=== PATIENT | female | born 1970 | race African-American/Black ===

== ENCOUNTER 2020-11-29 22:38 | Inpatient (IN) ==
[2020-11-29] MEDS ORDERED: VANCOMYCIN INJ 1,000 MG in SODIUM CHLORIDE 0.9% 250 ML IV STA ×2 (23:36→23:42)
[2020-11-29] MEDS ORDERED: ACETAMINOPHEN 325 MG TABLET PO PRN (23:36)
[2020-11-29] MEDS ORDERED: ONDANSETRON 4 MG/2 ML VIAL IV PRN (23:36)
[2020-11-29] MEDS: HYDROmorphone 2 MG/1 ML VIAL IV PRN (23:55)
[2020-11-30] MEDS ORDERED: diphenhydrAMINE 50 MG/1 ML VIAL IV STA (00:15)
[2020-11-30] MEDS ORDERED: CIPROFLOXACIN INJ 400 MG/200 ML PREMIX IV STA (00:59)
[2020-11-30] MEDS: LACTATED RINGERS 1,000 ML IV SCH ×2 (02:30→19:45)
[2020-11-30] MEDS ORDERED: ZALEPLON 5 MG CAPSULE PO PRN (02:40)
[2020-11-30] MEDS: metroNIDAZOLE INJ 500 MG/100 ML PREMIX IV SCH ×3 (04:00→20:51)
[2020-11-30] MEDS ORDERED: PANTOPRAZOLE 40 MG TABLET PO SCH (09:00)
[2020-11-30] MEDS: CALCIUM ACETATE 667 MG CAPSULE PO SCH ×4 (09:37→16:37)
[2020-11-30] MEDS: PANTOPRAZOLE 40 MG TABLET PO SCH (10:20)
[2020-11-30] MEDS: predniSONE 10 MG TABLET PO SCH (10:20)
[2020-11-30 10:22] LABS: Basophils % 0.3 % (0.0-0.8); Eosinophils # 0.4 10*3/uL (0.0-0.87); Eosinophils % 2.6 % (0.00-10.9); Hematocrit 38.3 VOL% (35.7-47.0); Hemoglobin 11.7 GM/DL (12.0-16.0); Immature Granulocytes % 1.9 %; Immature Granulocytes Absolute 0.26 #; Lymphocytes # 1.2 10*3/uL (1.4-4.0); Lymphocytes % 8.3 % (21.3-54.2); Mean Corpuscular HGB Conc 30.5 GM/DL (32-36); Mean Corpuscular Volume 96.7 FL (87-102); Mean Platelet Volume 9.6 FL (9.6-12.0); Monocytes % 7.9 % (1.7-12.7); Platelet Count 191 T/CUMM (130-400); Red Blood Count 3.96 MC/CUMM (3.8-5.5); Red Cell Distribution Width 17.6 % (9.3-17.3); White Blood Count 13.9 T/CUMM (4-12)
[2020-11-30 10:37] LABS: Calcium 8.6 MG/DL (8.5-10.1); Osmolality,Calculated 276.2 MOS/KG (273-304); Potassium 4.1 MMOL/L (3.5-5.1)
[2020-11-30] MEDS: HYDROmorphone 2 MG/1 ML VIAL IV PRN ×2 (12:14→16:33)
[2020-11-30] MEDS ORDERED: LIDOCAINE/PRILOCAINE CREAM 5 GM TUBE TOP ONE (15:10)
[2020-11-30] MEDS: diphenhydrAMINE CAP 25 MG CAPSULE PO PRN ×2 (16:31→21:59)
[2020-11-30] MEDS: CIPROFLOXACIN INJ 400 MG/200 ML PREMIX IV SCH (21:53)
[2020-12-01] MEDS: metroNIDAZOLE INJ 500 MG/100 ML PREMIX IV SCH ×3 (04:46→21:42)
[2020-12-01] MEDS: diphenhydrAMINE CAP 25 MG CAPSULE PO PRN ×2 (04:49→18:01)
[2020-12-01 04:52] LABS: Basophils % 0.2 % (0.0-0.8); Eosinophils # 0.3 10*3/uL (0.0-0.87); Eosinophils % 2.3 % (0.00-10.9); Hematocrit 35.6 VOL% (35.7-47.0); Hemoglobin 10.8 GM/DL (12.0-16.0); Immature Granulocytes % 2.7 %; Immature Granulocytes Absolute 0.38 #; Lymphocytes # 1.4 10*3/uL (1.4-4.0); Lymphocytes % 10.3 % (21.3-54.2); Mean Corpuscular HGB Conc 30.3 GM/DL (32-36); Mean Corpuscular Volume 97.5 FL (87-102); Mean Platelet Volume 9.9 FL (9.6-12.0); Monocytes % 9.7 % (1.7-12.7); Neutrophils % 74.8 % (38.7-73.9); Platelet Count 165 T/CUMM (130-400); Red Blood Count 3.65 MC/CUMM (3.8-5.5); Red Cell Distribution Width 17.9 % (9.3-17.3); White Blood Count 13.9 T/CUMM (4-12)
[2020-12-01 05:17] LABS: Osmolality,Calculated 272.8 MOS/KG (273-304); Potassium 4.1 MMOL/L (3.5-5.1)
[2020-12-01] MEDS: LIDOCAINE/PRILOCAINE CREAM 5 GM TUBE TOP SCH (07:32)
[2020-12-01] MEDS: CALCIUM ACETATE 667 MG CAPSULE PO SCH ×3 (09:39→17:19)
[2020-12-01] MEDS: predniSONE 10 MG TABLET PO SCH (09:39)
[2020-12-01] MEDS: PANTOPRAZOLE 40 MG TABLET PO SCH (09:39)
[2020-12-01] MEDS: LACTATED RINGERS 1,000 ML IV SCH (17:43)
[2020-12-01] MEDS: CIPROFLOXACIN INJ 400 MG/200 ML PREMIX IV SCH (22:42)
[2020-12-02] MEDS: diphenhydrAMINE CAP 25 MG CAPSULE PO PRN (00:01)
[2020-12-02] MEDS: metroNIDAZOLE INJ 500 MG/100 ML PREMIX IV SCH ×3 (05:35→21:39)
[2020-12-02 07:39] LABS: Basophils % 0.4 % (0.0-0.8); Eosinophils # 0.3 10*3/uL (0.0-0.87); Eosinophils % 2.3 % (0.00-10.9); Hematocrit 37.3 VOL% (35.7-47.0); Hemoglobin 11.1 GM/DL (12.0-16.0); Immature Granulocytes % 2.5 %; Immature Granulocytes Absolute 0.28 #; Lymphocytes # 1.2 10*3/uL (1.4-4.0); Lymphocytes % 10.5 % (21.3-54.2); Mean Corpuscular HGB Conc 29.8 GM/DL (32-36); Mean Corpuscular Volume 97.4 FL (87-102); Mean Platelet Volume 9.6 FL (9.6-12.0); Monocytes % 7.9 % (1.7-12.7); Neutrophils % 76.4 % (38.7-73.9); Platelet Count 160 T/CUMM (130-400); Red Blood Count 3.83 MC/CUMM (3.8-5.5); Red Cell Distribution Width 17.8 % (9.3-17.3); White Blood Count 11.4 T/CUMM (4-12)
[2020-12-02 08:05] LABS: Calcium 7.7 MG/DL (8.5-10.1); Osmolality,Calculated 270.5 MOS/KG (273-304); Potassium 3.9 MMOL/L (3.5-5.1)
[2020-12-02] MEDS: CALCIUM ACETATE 667 MG CAPSULE PO SCH ×3 (13:39→18:04)
[2020-12-02] MEDS: predniSONE 10 MG TABLET PO SCH (13:39)
[2020-12-02] MEDS: PANTOPRAZOLE 40 MG TABLET PO SCH (13:40)
[2020-12-02] MEDS: LACTATED RINGERS 1,000 ML IV SCH (20:15)
[2020-12-02] MEDS: CIPROFLOXACIN INJ 400 MG/200 ML PREMIX IV SCH (21:39)
[2020-12-03] MEDS: metroNIDAZOLE INJ 500 MG/100 ML PREMIX IV SCH (04:11)
[2020-12-03 05:49] LABS: Basophils % 0.3 % (0.0-0.8); Eosinophils # 0.3 10*3/uL (0.0-0.87); Eosinophils % 2.4 % (0.00-10.9); Hematocrit 33.5 VOL% (35.7-47.0); Hemoglobin 10.5 GM/DL (12.0-16.0); Immature Granulocytes % 1.6 %; Immature Granulocytes Absolute 0.17 #; Lymphocytes # 0.9 10*3/uL (1.4-4.0); Lymphocytes % 8.9 % (21.3-54.2); Mean Corpuscular HGB Conc 31.3 GM/DL (32-36); Mean Corpuscular Volume 94.9 FL (87-102); Monocytes % 9.9 % (1.7-12.7); Neutrophils % 76.9 % (38.7-73.9); Platelet Count 144 T/CUMM (130-400); Red Blood Count 3.53 MC/CUMM (3.8-5.5); Red Cell Distribution Width 17.7 % (9.3-17.3); White Blood Count 10.6 T/CUMM (4-12)
[2020-12-03 06:12] LABS: Albumin 2.5 G/DL (3.4-5.0); Bilirubin,Total 0.6 MG/DL (0.2-1.0); Calcium 7.3 MG/DL (8.5-10.1); Osmolality,Calculated 274.4 MOS/KG (273-304); Potassium 3.9 MMOL/L (3.5-5.1); Total Protein 7.6 G/DL (6.4-8.2)
[2020-12-03] MEDS: PANTOPRAZOLE 40 MG TABLET PO SCH (09:31)
[2020-12-03] MEDS: predniSONE 10 MG TABLET PO SCH (09:32)
[2020-12-03] MEDS: CALCIUM ACETATE 667 MG CAPSULE PO SCH ×2 (09:32→13:27)
[2020-12-03] MEDS: LACTATED RINGERS 1,000 ML IV SCH (09:40)
[2020-12-03 11:47] VITALS: BP 63/53
[2020-12-03] MEDS ORDERED: GENTAMICIN INJ 160 MG in SODIUM CHLORIDE 0.9% 100 ML IV ONE (12:30)
[2020-12-03] MEDS: LIDOCAINE/PRILOCAINE CREAM 5 GM TUBE TOP SCH (13:27)
[2020-12-05] MEDS ORDERED: GENTAMICIN INJ 120 MG/100 ML PREMIX IV SCH (17:00)
== END 2020-12-03 15:50 | disposition home or self-care (01) | DRG 393 ==
LOC: EDBD → EDUNIT# → N.ED 22:38 → N.EDINP 23:36 → N.5E 11-30 00:59
PROVIDERS: ADMIT Surgery; ATTEND Surgery

== ENCOUNTER 2020-12-04 10:13 | Inpatient (IN) ==
[2020-12-04] MEDS ORDERED: ALBUTEROL 2.5 MG/3 ML NEB RESP TX PRN (10:20)
[2020-12-04] MEDS ORDERED: NOREPINEPHRINE 8 MG in SODIUM CHLORIDE 0.9% 242 ML IV PRN (10:20)
[2020-12-04] MEDS ORDERED: MIDAZOLAM 2 MG/2 ML VIAL ONE (10:28)
[2020-12-04] MEDS ORDERED: MIDAZOLAM 10 MG/2 ML VIAL ONE (10:28)
[2020-12-04 10:38] LABS: ABG Base Excess -13.7 MMOL/L (-2.5-2.5); ABG HCO3 16.6 MMOL/L (20-26); ABG Oxygen Saturation 93.2 % (95-100); ABG PCO2 60.4 MM HG (35-48); ABG PO2 98.1 MM HG (80-95); ABG TCO2 18.5 MMOL/L (23-27)
[2020-12-04] MEDS ORDERED: MIDAZOLAM 2 MG/2 ML VIAL IV STA (10:39)
[2020-12-04 10:45] LABS: ABG PH 7.058 (7.35-7.45)
[2020-12-04 10:46] LABS: Basophils # 0.1 10*3/uL (0.0-0.2); Basophils % 0.4 % (0.0-0.8); Eosinophils # 0.2 10*3/uL (0.0-0.87); Hemoglobin 10.4 GM/DL (12.0-16.0); Immature Granulocytes % 5.5 %; Immature Granulocytes Absolute 0.79 #; Lymphocytes # 6.3 10*3/uL (1.4-4.0); Lymphocytes % 44.1 % (21.3-54.2); Mean Corpuscular HGB Conc 29.7 GM/DL (32-36); Mean Corpuscular Volume 99.7 FL (87-102); Mean Platelet Volume 10.5 FL (9.6-12.0); Monocytes % 2.2 % (1.7-12.7); NRBC # 0.02 10*3/uL; Neutrophils % 46.8 % (38.7-73.9); Platelet Count 107 T/CUMM (130-400); Red Blood Count 3.51 MC/CUMM (3.8-5.5); Red Cell Distribution Width 17.9 % (9.3-17.3); White Blood Count 14.3 T/CUMM (4-12)
[2020-12-04 10:50] LABS: INR 1.2; PT Patient Result 13.8 SECS (10.5-12.0); Partial Thromboplastin Time 61.2 SECS (23.9-33.8)
[2020-12-04 10:58] LABS: Band Neutrophils 1 % (0-10); Eosinophils 1 % (0-10); Lymphocytes 42 % (20-55); Platelet Estimate Decreased; Segmented Neutrophils 52 % (50-85); Total Cells Counted 100
[2020-12-04 11:00] LABS: Atypical Lymphocytes Few; Hypochromasia Slight; Microcytosis Slight
[2020-12-04] MEDS ORDERED: SODIUM BICARBONATE 50 MEQ/50 ML VIAL IV STA (11:26)
[2020-12-04] MEDS ORDERED: SODIUM BICARBONATE 50 MEQ/50 ML SYRINGE IV ONE (11:27)
[2020-12-04 11:28] LABS: Albumin 2.1 G/DL (3.4-5.0); Bilirubin,Total 0.4 MG/DL (0.2-1.0); Calcium 9.9 MG/DL (8.5-10.1); Osmolality,Calculated 294.5 MOS/KG (273-304); Total Protein 6.8 G/DL (6.4-8.2)
[2020-12-04] MEDS ORDERED: HEPARIN 5,000 UNIT/1 ML VIAL IV ONE (11:29)
[2020-12-04] MEDS ORDERED: PANTOPRAZOLE 40 MG VIAL IV SCH (11:30)
[2020-12-04] MEDS ORDERED: HEPARIN DRIP 25,000 UNITS/500 ML PREMIX IV SCH (11:30)
[2020-12-04 11:35] VITALS: BP 91/60
[2020-12-04 11:49] LABS: Lactic Acid 7.5 MMOL/L (0.4-2.0)
[2020-12-04] MEDS ORDERED: MIDAZOLAM 100 MG in SODIUM CHLORIDE 0.9% 80 ML IV PRN (12:03)
[2020-12-04] MEDS ORDERED: SODIUM BICARBONATE 50 MEQ/50 ML VIAL IV ONE ×3 (12:03→14:39)
[2020-12-04] MEDS ORDERED: LORazepam 2 MG/1 ML VIAL IV ONE (12:03)
[2020-12-04] MEDS ORDERED: LORazepam 2 MG/1 ML VIAL ONE (12:03)
[2020-12-04] MEDS ORDERED: HYDROCORTISONE 100 MG VIAL IV SCH (12:30)
[2020-12-04 12:47] LABS: ABG Base Excess -5.6 MMOL/L (-2.5-2.5); ABG Oxygen Saturation 99.7 % (95-100); ABG PCO2 45.8 MM HG (35-48); ABG PH 7.279 (7.35-7.45); ABG PO2 357.1 MM HG (80-95); ABG TCO2 22.4 MMOL/L (23-27)
[2020-12-04] MEDS ORDERED: PHENYLEPHRINE DRIP 40 MG/250 ML PREMIX IV PRN (12:57)
[2020-12-04] MEDS ORDERED: fentaNYL INJ 1,250 MCG in SODIUM CHLORIDE 0.9% 225 ML IV PRN (13:00)
[2020-12-04] MEDS ORDERED: CISATRACURIUM 10 MG/5 ML VIAL IV PRN (13:37)
[2020-12-04] MEDS ORDERED: fentaNYL 100 MCG/2 ML VIAL IV PRN (13:38)
[2020-12-04] MEDS ORDERED: MIDAZOLAM 2 MG/2 ML VIAL IV PRN (13:38)
[2020-12-04] MEDS ORDERED: DEXTROSE 50% 25 GM/50 ML VIAL IV PRN (13:39)
[2020-12-04] MEDS ORDERED: GLUCAGON 1 MG VIAL IM PRN (13:39)
[2020-12-04] MEDS ORDERED: POTASSIUM CHLORIDE RIDER 20 MEQ/100 ML PREMIX IV PRN (13:40)
[2020-12-04] MEDS ORDERED: MAGNESIUM SULF RIDER 1 GM/100 ML PREMIX IV PRN (14:00)
[2020-12-04] MEDS ORDERED: PHENYLEPHRINE INJ 160 MG in SODIUM CHLORIDE 0.9% 234 ML IV PRN (14:25)
[2020-12-04] MEDS ORDERED: NOREPINEPHRINE 16 MG in SODIUM CHLORIDE 0.9% 234 ML IV PRN (14:25)
[2020-12-04] MEDS ORDERED: DOPamine 800 MG/250 ML PREMIX IV PRN (14:39)
[2020-12-04] MEDS ORDERED: DOPamine 800 MG/250 ML PREMIX IV ONE (14:39)
[2020-12-04] MEDS ORDERED: SODIUM CHLORIDE 0.9% 500 ML BAG IV ONE (14:44)
[2020-12-04] MEDS ORDERED: EPINEPHrine 1 MG/10 ML SYRINGE ONE (14:44)
[2020-12-04] MEDS ORDERED: MINERAL OIL/PETROLATUM OPH OINT 3.5 GM TUBE BOTH EYES SCH (15:00)
[2020-12-04] MEDS ORDERED: INSULIN REGULAR 100 UNIT/ML IV SCH (16:00)
[2020-12-05 06:59] LABS: Total Protein (Chem) 6.8 G/DL (6.4-8.3)
[2020-12-05 08:35] LABS: Albumin (SPE) 3.3 G/DL (3.2-5.3); Albumin (SPE) Rel % 47.8 %; Alpha 1 (SPE) 0.2 G/DL (0.1-0.4); Alpha 1 (SPE) Rel % 2.9 %; Alpha 2 (SPE) 0.6 G/DL (0.4-1.0); Alpha 2 (SPE) Rel % 8.7 %; Beta (SPE) 0.9 G/DL (0.5-1.1); Beta (SPE) Rel % 13.8 %; Gamma (SPE) 1.8 G/DL (0.7-1.7); Gamma (SPE) Rel % 26.8 %
== END 2020-12-04 14:52 | disposition expired | DRG 314 ==
LOC: N.ED 10:13 → N.CC 11:13
PROVIDERS: ADMIT Family Medicine; ATTEND Family Medicine